=== PATIENT | male | born 1970 | race Caucasian/White ===

== ENCOUNTER → 2016-08-22 | Outpatient (CLI) | payer OTHER ==
--- NOTE | 2016-08-22 11:36 | RADIOLOGY REPORT PS360 ---
KNEE-3 VIEWS-RT HISTORY: Right knee pain BILAT KNEE PAIN ORDERING PHYSICIAN: SHE DUKES MD PATIENT AGE: 45 years COMPARISON: None FINDINGS: Technique: Weightbearing AP, lateral and Ocampo views were performed as well as oblique. No fracture or dislocation. No lytic or blastic change. Normal mineralization. No significant arthritic changes evident. No other significant findings IMPRESSION: Negative right Knee
--- NOTE | 2016-08-22 11:37 | RADIOLOGY REPORT PS360 ---
KNEE-3 VIEWS-LT HISTORY: BILAT KNEE PAIN ORDERING PHYSICIAN: SEH DUKES MD PATIENT AGE: 45 years COMPARISON: None FINDINGS: Weightbearing views performed No fracture or dislocation. No lytic or blastic change. Normal mineralization. No significant arthritic changes evident. No other significant findings IMPRESSION: Negative left Knee
--- NOTE | 2016-08-22 11:37 | RADIOLOGY REPORT PS360 ---
KNEE-3 VIEWS-LT HISTORY: BILAT KNEE PAIN ORDERING PHYSICIAN: SHE DUKES MD PATIENT AGE: 45 years COMPARISON: None FINDINGS: Weightbearing views performed No fracture or dislocation. No lytic or blastic change. Normal mineralization. No significant arthritic changes evident. No other significant findings IMPRESSION: Negative left Knee
== END ==
LOC: RAD 09:49
DX: M25.561 Pain in right knee (principal); M25.562 Pain in left knee